=== PATIENT | female | born 1965 | race Caucasian/White ===

== ENCOUNTER 2024-01-11 06:04 | Emergency (ER) | payer BC ==
[2024-01-11 06:16] VITALS: BP 131/77; PULSE 91; RESP 16; TEMP 98.4; BMI 28.5
[2024-01-11] MEDS: ACYCLOVIR 400 MG TABLET PO ONE (06:24)
== END 2024-01-11 06:28 | disposition home or self-care (01) ==
LOC: FER 06:04
DX: R21 Rash and other nonspecific skin eruption (principal); B02.9 Zoster without complications
CPT/HCPCS: 99283-25